=== PATIENT | male | born 1985 | race Caucasian/White ===

== ENCOUNTER 2016-12-07 16:37 | Emergency (ER) | payer OTHER ==
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
[~2016-12-07 16:37] MED LIST: ADVAIR 2501 DISK W/D PO; ALBUTEROL17 GM INH; AMOXICILLIN PO; AMOXICILLIN500 M1 PO; AUGMENTIN PO; BACTRIM DS TABL1 TA1 PO; BACTRIM DS TABL1 TAB PO; BACTROBAN22 GM TP; CELEXA; DICLOFENAC SODI50 MG PO; FLEXERIL PO; FLEXERIL10 MG PO; HALFPRIN162 MG PO; IBUPROFEN PO; KEFLEX PO; KEFLEX500 M1 PO; KEFLEX500 MG PO; KETOPROFEN PO; KLONOPIN PO; LORTAB 5/500 TA1 TA1 PO; MOBIC PO; MOTRIN100 MG PO; MOTRIN600 MG PO; NAPROSYN500 MG PO; NAPROXEN PO; NO MEDICATIONS; PEN-VEE K PO; PERCOCET10 PO; PERCOCET5/325 PO; PREDNISONE PO; SKELAXIN PO; SPECTAZOLE15 GM TP; TERBINAFINE (L250 MG DOB; TETRACYCLINE PO; TYLENOL #3 PO; ULTRAM PO; VICODIN 5/1 TAB 5/50 PO; VICODIN 5/500 T1 TAB PO; VICODIN PO; VOLTAREN50 MG PO; VOLTAREN75 MG PO; ZITHROMAX PO; ZOLOFT; [UNRECOGNIZED DRUG - REMARK]
== END 2016-12-07 17:19 | disposition home or self-care (01) ==
LOC: SED 16:37
DX: S09.90XA Unspecified injury of head, initial encounter (principal); R03.0 Elevated blood-pressure reading, without diagnosis of hypertension; W22.8XXA Striking against or struck by other objects, initial encounter
CPT/HCPCS: 70450; 72125; 99284

== ENCOUNTER 2017-04-20 00:06 | Emergency (ER) | payer OTHER ==
[~2017-04-20] VITALS: Ht 182.9 cm; Wt 80.7 kg
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
[2017-04-20 01:32] LABS: BASOPHIL# 0.1 X10e3 (0-0.3); BASOPHIL% 0.4 % (0-2.5); EOSINOPHIL# 0.1 X10e3 (0-0.7); EOSINOPHIL% 0.7 % (0.0-7.0); HEMATOCRIT 43.8 % (38.0-50.0); HEMOGLOBIN 14.7 gm/dL (13.0-16.0); MEAN CELL VOLUME 89.5 FL (83-96); MEAN CORPUSCULAR HEMOGLOBIN 30.2 PG (28-34); MEAN CORPUSCULAR HGB CONC 33.7 g/dL (30-36); MEAN PLATELET VOLUME 9.5 FL (6.5-11.5); MONOCYTE# 1.5 X10e3 (0-1.0); MONOCYTE% 9.3 % (3.0-12.0); NEUTROPHIL# 12.9 X10e3 (1.5-7.1); NEUTROPHIL% 77.6 % (40-75); PLATELET COUNT 210 X10e3 (140-420); RED BLOOD COUNT 4.89 X10e (3.90-5.60); RED CELL DISTRIBUTION WIDTH 14.4 % (11.0-15.5); WHITE BLOOD COUNT 16.6 X10e3 (4.0-10.5)
[2017-04-20 01:34] LABS: DIFF IND YES
[2017-04-20 01:48] LABS: CALCIUM SERUM 8.7 mg/dL (8.4-10.2); GLOM FILT RATE Estimated 98.5 mL/min (>60); POTASSIUM 3.9 mmol/L (3.5-5.1)
[2017-04-20 01:57] LABS: ANISOCYTOSIS SL; DIFFERENTIAL COMMENT OCC.ATYLYMPHS; PLATELET ESTIMATE NORMAL (NORMAL)
[2017-04-20 02:24] LABS: AMPHETAMINE POS (NEG); BARBITURATES NEG (NEG); BENZODIAZEPINES NEG (NEG); COCAINE NEG (NEG); MARIJUANA NEG (NEG); OPIATES POS (NEG); TRICYCLIC ANTIDEPRESSANTS NEG (NEG); U METHADONE NEG (NEG)
== END 2017-04-20 05:29 | disposition home or self-care (01) ==
LOC: CED 00:06
PROVIDERS: Nurse Practitioner Family
DX: S13.4XXA Sprain of ligaments of cervical spine, initial encounter (principal); S33.5XXA Sprain of ligaments of lumbar spine, initial encounter; S23.3XXA Sprain of ligaments of thoracic spine, initial encounter; S80.01XA Contusion of right knee, initial encounter; F11.129 Opioid abuse with intoxication, unspecified; F15.129 Other stimulant abuse with intoxication, unspecified; V43.62XA Car passenger injured in collision with other type car in traffic accident, initial encounter
CPT/HCPCS: 36415; 70450; 72072; 72100; 72125; 73562; 74177; 80048; 80307; 85025; 99284; Q9967

== ENCOUNTER 2017-05-06 22:00 | Emergency (ER) | payer OTHER ==
[~2017-05-06] VITALS: Ht 170.2 cm; Wt 76.2 kg
== END 2017-05-07 00:15 | disposition home or self-care (01) ==
LOC: CED 22:00
DX: F41.9 Anxiety disorder, unspecified (principal); F19.10 Other psychoactive substance abuse, uncomplicated; F32.9 Major depressive disorder, single episode, unspecified; F17.200 Nicotine dependence, unspecified, uncomplicated
CPT/HCPCS: 99284